=== PATIENT | female | born 1955 | race American Indian/Alaskan Native ===

== ENCOUNTER 2018-10-22 18:30 | Emergency (ER) | payer SELFPAY ==
[2018-10-22 19:27] VITALS: BP 149/78
[2018-10-22] MEDS ORDERED: PEPCID PO ONE (22:21)
[2018-10-22] MEDS ORDERED: BENADRYL PO ONE (22:21)
[2018-10-22] MEDS ORDERED: DELTASONE PO ONE (22:21)
--- NOTE | 2018-10-22 22:26 | Emergency Department Report ---
ED General Adult HPI - General Chief complaint: Pain General Stated complaint: ENITRE BODY ITCH Time Seen by Provider: 10/22/18 22:20 Source: patient Mode of arrival: Ambulatory Limitations: No Limitations - History of Present Illness Initial comments: Patient is a 63-year-old female who presents with adult sone serving as senior director of [employer] with complaint of generalized itching 4 days patient spend the day outside and started to itch that evening there's no fevers no chills no shortness of breath no hives there is mild contact dermatitis is exacerbated by itch scratch cycle there is no weeping no wheezing no nausea vomiting no chest pain no lightheadedness or dizziness patient is in the throat was steady gait to baseline per son patient is tolerating by mouth intake without symptoms. Onset/Timin -: days(s) Location: neck, back, upper extremity, lower extremity Radiation: non-radiation Severity scale (0 -10): 4 Quality: other (itching ) Consistency: constant, other (itch scratche cycle ) Worsens with: other (itch scratch cycle ) Associated Symptoms: rash. denies: confusion, chest pain, cough, diaphoresis, fever/chills, headaches, loss of appetite, malaise, nausea/vomiting, seizure, shortness of breath, syncope, weakness Treatments Prior to Arrival: none - Related Data Previous Rx's Medication Instructions Recorded Last Taken Type Famotidine [Pepcid] 20 mg PO BID 7 Days #14 tablet 10/22/18 Unknown Rx Skin Emollient [Aquaphor (Nf)] 1 applic TP BID #1 jar 10/22/18 Unknown Rx Triamcinolone Aceton 0.1% (Nf) 1 applic TP BID 14 Days #1 tube 10/22/18 Unknown Rx [Kenalog (NF)] diphenhydrAMINE [Benadryl CAP] 25 mg PO Q6HR PRN 7 Days #28 10/22/18 Unknown Rx capsule predniSONE [Deltasone] 40 mg PO QDAY 5 Days #10 tab 10/22/18 Unknown Rx Allergies Allergy/AdvReac Type Severity Reaction Status Date / Time No Known Allergies Allergy Verified 10/22/18 19:27 ED Review of Systems ROS: Stated complaint: ENITRE BODY ITCH Other details as noted in HPI Constitutional: denies: chills, fever Eyes: denies: eye pain, eye discharge, vision change ENT: denies: ear pain, throat pain Respiratory: denies: cough, shortness of breath, wheezing Cardiovascular: denies: chest pain, palpitations Endocrine: no symptoms reported Gastrointestinal: denies: abdominal pain, nausea, diarrhea Genitourinary: denies: urgency, dysuria, discharge Musculoskeletal: denies: back pain, joint swelling, arthralgia Skin: rash (bilat upper and lower extremes, neck and trunk ) Neurological: denies: headache, weakness, paresthesias Psychiatric: as per HPI Hematological/Lymphatic: denies: easy bleeding, easy bruising ED Past Medical Hx - Past Medical History Previous Medical History?: No - Surgical History Past Surgical History?: No - Social History Smoking Status: Never Smoker Substance Use Type: None - Medications Home Medications: Home Medications Medication Instructions Recorded Confirmed Last Taken Type Famotidine [Pepcid] 20 mg PO BID 7 Days #14 tablet 10/22/18 Unknown Rx Skin Emollient [Aquaphor (Nf)] 1 applic TP BID #1 jar 10/22/18 Unknown Rx Triamcinolone Aceton 0.1% (Nf) 1 applic TP BID 14 Days #1 tube 10/22/18 Unknown Rx [Kenalog (NF)] diphenhydrAMINE [Benadryl CAP] 25 mg PO Q6HR PRN 7 Days #28 10/22/18 Unknown Rx capsule predniSONE [Deltasone] 40 mg PO QDAY 5 Days #10 tab 10/22/18 Unknown Rx ED Physical Exam - General Limitations: No Limitations General appearance: alert, in no apparent distress - Head Head exam: Present: atraumatic, normocephalic - Eye Eye exam: Present: normal appearance, PERRL - ENT ENT exam: Present: mucous membranes moist - Neck Neck exam: Present: normal inspection - Respiratory Respiratory exam: Present: normal lung sounds bilaterally. Absent: respiratory distress, wheezes, rales, rhonchi, stridor, chest wall tenderness, prolonged expiratory - Cardiovascular Cardiovascular Exam: Present: regular rate, normal rhythm, normal heart sounds. Absent: systolic murmur, diastolic murmur, rubs, gallop - GI/Abdominal GI/Abdominal exam: Present: soft, normal bowel sounds. Absent: distended, tenderness, bruit, hernia - Rectal Rectal exam: Present: deferred - Extremities Exam Extremities exam: Present: normal inspection, full ROM, normal capillary refill. Absent: tenderness, pedal edema, joint swelling, calf tenderness - Back Exam Back exam: Present: normal inspection, full ROM, rash noted (urticarial raised smooth mild erythema dry ). Absent: tenderness, CVA tenderness (R), CVA tenderness (L), muscle spasm, paraspinal tenderness, vertebral tenderness - Neurological Exam Neurological exam: Present: alert, oriented X3, CN II-XII intact, reflexes normal. Absent: motor sensory deficit - Psychiatric Psychiatric exam: Present: normal affect, normal mood - Skin Skin exam: Present: warm, dry, intact, normal color, rash (rash above ) ED Course Vital Signs 10/22/18 19:24 Temperature 97.9 F Pulse Rate 87 Respiratory 18 Rate Blood Pressure 149/78 O2 Sat by Pulse 97 Oximetry ED Medical Decision Making - Medical Decision Making this is a contact dermatitis plan, triamcinolone oint, prednisone, benadryl , pepcid follow up with pcp in 2-3 days pt verbalized agreement and understanding same. pt dc'd to self in stable condition at this time. Critical care attestation.: If time is entered above; I have spent that time in minutes in the direct care of this critically ill patient, excluding procedure time. ED Disposition Clinical Impression: Dermatitis Disposition: DC-01 TO HOME OR SELFCARE Is pt being admited?: No Does the pt Need Aspirin: No Condition: Stable Instructions: Contact Dermatitis (ED) Prescriptions: Skin Emollient [Aquaphor (Nf)] 1 applic TP BID #1 jar diphenhydrAMINE [Benadryl CAP] 25 mg PO Q6HR PRN 7 Days #28 capsule PRN Reason: Itching predniSONE [Deltasone] 40 mg PO QDAY 5 Days #10 tab Triamcinolone Aceton 0.1% (Nf) [Kenalog (NF)] 1 applic TP BID 14 Days #1 tube Famotidine [Pepcid] 20 mg PO BID 7 Days #14 tablet Referrals: [facility] [Outside] - 3-5 Days JULIA VALLADARES MD [Staff Physician] - 3-5 Days Forms: Work/School Release Form(ED) Time of Disposition: 22:33
== END 2018-10-22 22:50 | disposition home or self-care (01) ==
LOC: EDBD → ED 18:30
DX: L30.9 Dermatitis, unspecified (principal)
CPT/HCPCS: 99282; J7512